=== PATIENT | female | born 1995 ===

== ENCOUNTER 2016-11-20 20:01 | Emergency (ER) | payer OTHER ==
[~2016-11-20] VITALS: Ht 154.9 cm; Wt 71.6 kg
[2016-11-20 20:12] VITALS: TEMP 36.8; Ht 154.9 cm; Wt 71.6 kg
[2016-11-20 21:37] VITALS: BP 124/87; PULSE 68; O2SAT 99
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
== END 2016-11-20 21:38 | disposition home or self-care (01) ==
LOC: C.EDB 20:03 → C.EDD 21:38
DX: M54.2 Cervicalgia (principal); R51 Headache; V43.62XA Car passenger injured in collision with other type car in traffic accident, initial encounter; Y92.488 Other paved roadways as the place of occurrence of the external cause

== ENCOUNTER 2016-12-20 11:20 | Emergency (ER) | payer OTHER ==
[~2016-12-20] VITALS: Ht 154.9 cm; Wt 70.0 kg
[2016-12-20 11:23] VITALS: TEMP 36.8; Ht 154.9 cm; Wt 70.0 kg
[2016-12-20] MEDS ORDERED: BCPILLS PO (12:03)
[2016-12-20 13:01] LABS: BASO % 0.2 %; BASO ABS # 0.01 K/uL (0-0.2); COMPLETE YES; HEMATOCRIT 38.6 % (37-47); IG% 0.2 %; LYMPH % 28.8 %; LYMPH ABS # 1.61 K/uL (1.2-3.4); MEAN CELL VOLUME 92.1 fL (80-100); MEAN CORPUSCULAR HEMOGLOBIN 31.3 pg (25-34); MEAN CORPUSCULAR HGB CONC 33.9 g/dl (32-36); NEUT % 65.8 %; PLATELET COUNT 262 K/uL (130-400); RED BLOOD COUNT 4.19 M/uL (4.2-5.4)
[2016-12-20 13:11] LABS: BUN/CREATININE RATIO 10.3 (10-20); CREATININE 0.63 mg/dl (0.60-1.20); POTASSIUM 3.9 mmol/L (3.5-5.1)
[2016-12-20 13:13] LABS: ALB/GLOB RATIO 0.9 (0.9-2)
[2016-12-20 13:21] LABS: URINE APPEARANCE CLEAR (CLEAR); URINE BILIRUBIN NEG (NEG); URINE COLOR YELLOW; URINE EPITHELIAL CELL AUTO >30 /lpf (0-5); URINE NITRITE NEG (NEG); URINE PH 7.5 (4.5-7.5); UROBILINOGEN NEG (NEG); ZZUR CULT IF INDIC CLEAN CATCH NO
[2016-12-20 13:23] LABS: MANUAL MICROSCOPIC REQUIRED? NO; REVIEW REQ? NO
[2016-12-20] MEDS ORDERED: ONDANSETRON INJ 2 MG/ML 2 ML VIAL IV STA (13:23)
[2016-12-20] MEDS ORDERED: SODIUM CHLORIDE 0.9% 1000ML 1,000 ML IV STA ×2 (13:23)
--- NOTE | 2016-12-20 13:25 | EMERGENCY ROOM VISIT NOTE ---
History Report prepared by Althea: Francine Begum Under the Supervision of: Dr. Demetris Romero D.O. First contact with patient: 13:14 Chief Complaint: ABDOMINAL PAIN Stated Complaint: LEFT OVARY PAIN, LOWER BACK PAIN Nursing Triage Summary: pt to the ED with left lower pelvic pain going to her back that started at 3 am today with nausea History of Present Illness The patient is a 21 year old female who presents to the Emergency Room with complaints of worsening left lower pelvic pain beginning at 3am this morning. She states that the pain feels like it is over her left ovary. Patient states that the pain radiates to her lower back. The patient has tried a heating pad that did not help to alleviate the symptoms. She notes she has been experiencing a white vaginal discharge, headache and nausea also. The patient notes that she also for the past few weeks has been experiencing abdominal pain. She has tried to change her diet and this did not change her symptoms. The patient notes she has a history of ovarian cyst. During the time of the cyst she experienced pelvic pain similar to what she is experiencing now. She notes however that she had an ultrasound done 2 months ago and no cyst was seen at that time. The patient denies vaginal bleeding, blood in urine, or vomiting. Her LNMP was one month ago. The patient is on control. Source of History: patient Onset: 3am this morning Position: other (lower pelvic) Timing: worsening Associated Symptoms: + headache, + nausea, No vomiting Note: Patient is experiencing white vaginal discharge. Review of Systems See HPI for pertinent positives & negatives. A total of 10 systems reviewed and were otherwise negative. Past Medical & Surgical Medical Problems: (1) Ovarian cyst Family History Patient reports no known family medical history. Social History Smoking Status: Never Smoker Smokeless Tobacco Use: No Marital Status: single Housing Status: lives with roommate Occupation Status: [employer] student Current/Historical Medications Scheduled Control Pills ( Control Pills), 1 TAB PO DAILY Scheduled PRN Oxycodone Immediate Rel Tab (Roxicodone Ir), 1-2 TAB PO Q4H PRN for Severe Pain Allergies Coded Allergies: No Known Allergies (Unverified , 12/20/16) Physical Exam Vital Signs Date Time Temp Pulse Resp B/P Pulse Ox O2 Delivery O2 Flow Rate FiO2 12/20/16 17:52 65 16 113/76 98 12/20/16 16:21 54 16 110/64 98 12/20/16 14:29 75 17 104/56 100 Room Air 12/20/16 13:43 57 18 107/69 99 Room Air 12/20/16 11:23 36.8 76 16 116/73 96 Room Air Physical Exam GENERAL: Patient is awake, alert, and in no acute distress. Patient is resting comfortably and showing no signs of anxiety EYES: The conjunctivae are clear. The pupils are round and reactive. EARS, NOSE, MOUTH AND THROAT: The nose is without any evidence of any deformity. Mucous membranes are moist tongue is midline NECK: The neck is nontender and supple. RESPIRATORY: Normal respiratory effort is noted there is no evidence of wheezing rhonchi or rales CARDIOVASCULAR: Regular rate and rhythm noted there no murmurs rubs or gallops normal S1 normal S2 GASTROINTESTINAL: The abdomen is soft. Bowel sounds are present in all quadrants. Abdomen is mildly distended. Bilateral lower tenderness to palpation. No guarding or rigidity. BACK: No midline tenderness or or step-off noted range of motion in flexion extension as well as rotation no signs of muscle spasm noted MUSCULOSKELETAL/EXTREMITIES: There is no evidence of gross deformity full range of motion is noted in the hips and shoulders SKIN: There is no obvious evidence of any rash. There are no petechiae, pallor or cyanosis noted. NEUROLOGIC: Patient is awake alert and oriented x3 strength is symmetric patellar reflexes are 2+ bilaterally Medical Decision & Procedures ER Provider Diagnostic Interpretation: Radiology results as stated below per my review and radiologist interpretation: ADDENDUM Addendum: The uterus measures 7.6 x 3.2 x 4.9 cm. The endometrium measures 3 mm in thickness. Transvaginal imaging was deferred in this patient. The right ovary measured 2.3 x 1.2 x 1.6 cm and the left measured 2.6 x 1.6 x 2 cm. No free fluid was identified. An echogenic shadowing lesion within the left adnexa is noted. This suggests a left ovarian dermoid, measuring approximately 3.5 cm. This could be assessed with CT. Electronically signed by: Roge Cortez M.D. 12/20/2016 4:17 PM Dictated Date/Time: 12/20/2016 4:15 PM ORIGINAL REPORT EXAMINATION: PELVIC ULTRASOUND CLINICAL HISTORY: lweftr lower abd pain PAIN COMPARISON STUDY: None Findings: The appendix is not identified. Study is nondiagnostic in reference to potential appendicitis IMPRESSION: Nonvisualization of the appendix Electronically signed by: Krishan Sexton M.D. 12/20/2016 3:36 PM Dictated Date/Time: 12/20/2016 3:34 PM APPENDIX ULTRASOUND CLINICAL HISTORY: Right lower quadrant abdominal pain COMPARISON STUDY: No previous studies for comparison. FINDINGS: Ultrasonographic evaluation right lower quadrant was performed and circulation representative images are similar for interpretation. The appendix was nonvisualized. There are no abnormal fluid collections. IMPRESSION: Nonvisualization the appendix. This study is therefore nondiagnostic in regards to acute appendicitis Electronically signed by: Brian Dinero M.D. 12/20/2016 3:27 PM Dictated Date/Time: 12/20/2016 3:[address] ABD/PELVIS IV AND ORAL CONT CLINICAL HISTORY: Lower abdominal pain COMPARISON STUDY: Appendiceal ultrasound dated 12/20/2016 TECHNIQUE: Following the IV administration of 92 mL of Optiray-320, CT scan of the abdomen and pelvis was performed from the lung bases to the proximal femurs. Images are reviewed in the axial, sagittal, and coronal planes. IV contrast was administered without complication. CT DOSE: 333.57 mGy.cm FINDINGS: Lower chest: The heart is normal in size and configuration, without pericardial effusion. The lung bases and pleural spaces are clear. Liver: The contrast-enhanced liver is normal in size, contour, and attenuation. There is no intrahepatic biliary ductal dilatation. The hepatic veins and portal veins are patent. Gallbladder: Unremarkable. Spleen: Normal in size and attenuation. Pancreas: Unremarkable. Adrenal glands: Unremarkable. Kidneys: There is symmetric renal cortical enhancement. There is minimal prominence of the right renal pelvis but significant hydronephrosis is not felt to be present. Bowel: There are no transition zones indicate bowel obstruction. The appendix appears normal. There is no acute diverticulitis. Peritoneum: There is no intraperitoneal free air or abdominal ascites. Vasculature: The abdominal aorta is normal in course and caliber. Adenopathy: None. Pelvic viscera: There is a 4.4 cm mass with thin the left cul-de-sac containing fat and calcification. This is consistent with ovarian thyroid/teratoma. A small calcification posterior to the bladder to the right of midline, likely represents a phlebolith. This is likely inferior to the right ureteral insertion. Skeletal structures: No destructive osseous lesions are seen. IMPRESSION: 1. No evidence of bowel obstruction. No evidence of free air 2. Normal appendix 3. No acute inflammatory changes 4. 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 Electronically signed by: Brian Dinero M.D. 12/20/2016 4:22 PM Dictated Date/Time: 12/20/2016 4:16 PM Laboratory Results 12/20/16 12:39 Red Blood Count 4.19, Mean Corpuscular Volume 92.1, Mean Corpuscular Hemoglobin 31.3, Mean Corpuscular Hemoglobin Concent 33.9, Mean Platelet Volume 12.0, Neutrophils (%) (Auto) 65.8, Lymphocytes (%) (Auto) 28.8, Monocytes (%) (Auto) 5.0, Eosinophils (%) (Auto) 0.0, Basophils (%) (Auto) 0.2, Neutrophils # (Auto) 3.69, Lymphocytes # (Auto) 1.61, Monocytes # (Auto) 0.28, Eosinophils # (Auto) 0.00, Basophils # (Auto) 0.01 12/20/16 12:39 Test 12/20/16 12:30 12/20/16 12:39 Urine Color YELLOW Urine Appearance CLEAR (CLEAR) Urine pH 7.5 (4.5-7.5) Urine Specific [place] 1.000 (1.000-1.030) Urine Protein NEG (NEG) Urine Glucose (UA) NEG (NEG) Urine Ketones NEG (NEG) Urine Occult Blood NEG (NEG) Urine Nitrite NEG (NEG) Urine Bilirubin NEG (NEG) Urine Urobilinogen NEG (NEG) Urine Leukocyte Esterase TRACE (NEG) Urine WBC (Auto) 1-5 /hpf (0-5) Urine RBC (Auto) 0-4 /hpf (0-4) Urine Hyaline Casts (Auto) 0 /lpf (0-5) Urine Epithelial Cells (Auto) >30 /lpf (0-5) Urine Bacteria (Auto) NEG (NEG) White Blood Count 5.60 K/uL (4.8-10.8) Red Blood Count 4.19 M/uL (4.2-5.4) Hemoglobin 13.1 g/dL (12.0-16.0) Hematocrit 38.6 % (37-47) Mean Corpuscular Volume 92.1 fL (80-100) Mean Corpuscular Hemoglobin 31.3 pg (25-34) Mean Corpuscular Hemoglobin Concent 33.9 g/dl (32-36) Platelet Count 262 K/uL (130-400) Mean Platelet Volume 12.0 fL (7.4-10.4) Neutrophils (%) (Auto) 65.8 % Lymphocytes (%) (Auto) 28.8 % Monocytes (%) (Auto) 5.0 % Eosinophils (%) (Auto) 0.0 % Basophils (%) (Auto) 0.2 % Neutrophils # (Auto) 3.69 K/uL (1.4-6.5) Lymphocytes # (Auto) 1.61 K/uL (1.2-3.4) Monocytes # (Auto) 0.28 K/uL (0.11-0.59) Eosinophils # (Auto) 0.00 K/uL (0-0.5) Basophils # (Auto) 0.01 K/uL (0-0.2) RDW Standard Deviation 44.5 fL (36.4-46.3) RDW Coefficient of Variation 13.3 % (11.5-14.5) Immature Granulocyte % (Auto) 0.2 % Immature Granulocyte # (Auto) 0.01 K/uL (0.00-0.02) Anion Gap 8.0 mmol/L (3-11) Est Creatinine Clear Calc Drug Dose 127.4 ml/min Estimated GFR () 149.7 Estimated GFR (Non- 129.1 BUN/Creatinine Ratio 10.3 (10-20) Calcium Level 9.0 mg/dl (8.5-10.1) Total Bilirubin 0.3 mg/dl (0.2-1) Aspartate Amino Transf (AST/SGOT) 20 U/L (15-37) Alanine Aminotransferase (ALT/SGPT) 23 U/L (12-78) Alkaline Phosphatase 49 U/L (45-117) Total Protein 7.7 gm/dl (6.4-8.2) Albumin 3.7 gm/dl (3.4-5.0) Globulin 4.0 gm/dl (2.5-4.0) Albumin/Globulin Ratio 0.9 (0.9-2) Lipase 164 U/L (73-393) Human Chorionic Gonadotropin, Qual NEG (NEG) Laboratory results per my review. Medications Administered Medications (Trade) Dose Ordered Sig/Maylin Route Start Time Stop Time Status Last Admin Dose Admin Ondansetron HCl 4 mg 4 mg NOW STAT IV 12/20/16 13:23 12/20/16 13:26 DC 12/20/16 13:44 4 MG Sodium Chloride 1,000 ml @ 999 mls/hr Q1H1M STAT IV 12/20/16 13:23 12/20/16 14:23 DC 12/20/16 13:45 999 MLS/HR Sodium Chloride (Nss 1000ml) 1,000 ml @ 250 mls/hr Q4H STAT IV 12/20/16 13:23 12/20/16 17:22 DC 12/20/16 13:23 250 MLS/HR ED Course 1320: The patient was evaluated in room C2. A complete history and physical examination were performed. 1323: Sodium Chloride 1,000 ml @ 250 mls/hr IV, Sodium Chloride 1,000 ml @ 999 mls/hr IV, Zofran Inj 4 mg IV. 1657: I spoke with Dr. Nazanin ROBLES about the patient's results. The patient will follow up outpatient in the office. 1719: I reevaluated the patient and discussed plan for outpatient treatment follow up. 1735: Upon reevaluation, the patient is hemodynamically stable. I discussed the results and treatment plan with her. She verbalized agreement of the treatment plan. She was discharged home. Medical Decision Differential diagnosis: Etiologies such as appendicitis, diverticulitis, PUD, biliary pathology, UTI, pancreatitis, obstruction, mesenteric ischemia, aortic pathology, infections, inflammatory bowel disease, renal colic, as well as others were entertained. Nursing notes reviewed. The patient is a 21-year-old female who presented to the emergency department for an evaluation of left pelvic pain. The patient did not have a physical exam consistent with a surgical abdomen. She states that she's had a history of ovarian cysts in the past. Ultrasound did not reveal definite appendicitis. There was an adnexal abnormality noted on ultrasound of the pelvis and a CAT scan was recommended. The patient was found have what appears to be a dermoid cyst in the left adnexal pain. I discussed patient's laboratory and radiographic studies with her. She was treated with IV fluids and IV antiemetics. I discussed his case with the on-call [facility] ACCOUNT SERVICES ASSOCIATE physician. They've recommended outpatient follow-up for further evaluation of this abnormality noted on CAT scan. The patient was encouraged to rest and avoid any strenuous activity. She was encouraged to continue all medications as prescribed and follow-up with ACCOUNT SERVICES ASSOCIATE as soon as possible. She was also encouraged to return to the emergency department immediately if symptoms change worsen or the need arises. Consults Time Called: 1654 Consulting Physician: Dr. Nazanin ROBLES Returned Call: [phone] Nazanin ROBLES about the patient's results. The patient will follow up outpatient in the office. Impression Primary Impression: Pelvic pain Additional Impression: Dermoid cyst Scribe Attestation The scribe's documentation has been prepared under my direction and personally reviewed by me in its entirety. I confirm that the note above accurately reflects all work, treatment, procedures, and medical decision making performed by me. Departure Information Dispostion Home / Self-Care Prescriptions Oxycodone Immediate Rel Tab (ROXICODONE IR) 5 Mg Tab 1-2 TAB PO Q4H Y for Severe Pain, #24 TAB Prov: Demetris Romero, DO 12/20/16 Referrals No Doctor, Assigned (PCP) Forms HOME CARE DOCUMENTATION FORM, IMPORTANT VISIT INFORMATION, School Instructions, Work Instructions Patient Instructions ED Cyst Ovarian, My [facility] Additional Instructions Continue using Motrin and Tylenol as directed for pain. Rest and avoid any strenuous activity. Call the ACCOUNT SERVICES ASSOCIATE physician to schedule a follow-up appointment. According to the radiographic studies this appears to be a dermoid ovarian cyst. Other causes could be possible. I would recommend a follow-up appointment with the ACCOUNT SERVICES ASSOCIATE physician as it is possible to evaluate what treatment options are available. Return to the emergency apartment immediately symptoms change worsen or the need arises. Problem Qualifiers
[2016-12-20 13:45] LABS: PREG INTERNAL NEGATIVE QC NEG CLEAR BACKGROUND; PREG INTERNAL POSITIVE QC POS CONTROL LINE
--- NOTE | 2016-12-20 15:28 | DIAGNOSTIC IMAGING REPORT ---
APPENDIX ULTRASOUND CLINICAL HISTORY: Right lower quadrant abdominal pain COMPARISON STUDY: No previous studies for comparison. FINDINGS: Ultrasonographic evaluation right lower quadrant was performed and technical sales representative images are similar for interpretation. The appendix was nonvisualized. There are no abnormal fluid collections. IMPRESSION: Nonvisualization the appendix. This study is therefore nondiagnostic in regards to acute appendicitis Electronically signed by: Brian Dinero M.D. 12/20/2016 3:27 PM Dictated Date/Time: 12/20/2016 3:27 PM
--- NOTE | 2016-12-20 15:37 | DIAGNOSTIC IMAGING REPORT ---
ADDENDUM Addendum: The uterus measures 7.6 x 3.2 x 4.9 cm. The endometrium measures 3 mm in thickness. Transvaginal imaging was deferred in this patient. The right ovary measured 2.3 x 1.2 x 1.6 cm and the left measured 2.6 x 1.6 x 2 cm. No free fluid was identified. An echogenic shadowing lesion within the left adnexa is noted. This suggests a left ovarian dermoid, measuring approximately 3.5 cm. This could be assessed with CT. Electronically signed by: Roge Cortez M.D. 12/20/2016 4:17 PM Dictated Date/Time: 12/20/2016 4:15 PM ORIGINAL REPORT EXAMINATION: PELVIC ULTRASOUND CLINICAL HISTORY: lweftr lower abd pain PAIN COMPARISON STUDY: None Findings: The appendix is not identified. Study is nondiagnostic in reference to potential appendicitis IMPRESSION: Nonvisualization of the appendix Electronically signed by: Krishan Sexton M.D. 12/20/2016 3:36 PM Dictated Date/Time: 12/20/2016 3:34 PM
[2016-12-20] MEDS ORDERED: OPTIRAY 320 IV PRN (16:15)
--- NOTE | 2016-12-20 16:24 | DIAGNOSTIC IMAGING REPORT ---
CT ABD/PELVIS IV AND ORAL CONT CLINICAL HISTORY: Lower abdominal pain COMPARISON STUDY: Appendiceal ultrasound dated 12/20/2016 TECHNIQUE: Following the IV administration of 92 mL of Optiray-320, CT scan of the abdomen and pelvis was performed from the lung bases to the proximal femurs. Images are reviewed in the axial, sagittal, and coronal planes. IV contrast was administered without complication. CT DOSE: 333.57 mGy.cm FINDINGS: Lower chest: The heart is normal in size and configuration, without pericardial effusion. The lung bases and pleural spaces are clear. Liver: The contrast-enhanced liver is normal in size, contour, and attenuation. There is no intrahepatic biliary ductal dilatation. The hepatic veins and portal veins are patent. Gallbladder: Unremarkable. Spleen: Normal in size and attenuation. Pancreas: Unremarkable. Adrenal glands: Unremarkable. Kidneys: There is symmetric renal cortical enhancement. There is minimal prominence of the right renal pelvis but significant hydronephrosis is not felt to be present. Bowel: There are no transition zones indicate bowel obstruction. The appendix appears normal. There is no acute diverticulitis. Peritoneum: There is no intraperitoneal free air or abdominal ascites. Vasculature: The abdominal aorta is normal in course and caliber. Adenopathy: None. Pelvic viscera: There is a 4.4 cm mass with thin the left cul-de-sac containing fat and calcification. This is consistent with ovarian thyroid/teratoma. A small calcification posterior to the bladder to the right of midline, likely represents a phlebolith. This is likely inferior to the right ureteral insertion. Skeletal structures: No destructive osseous lesions are seen. IMPRESSION: 1. No evidence of bowel obstruction. No evidence of free air 2. Normal appendix 3. No acute inflammatory changes 4. 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 Electronically signed by: Brian Dinero M.D. 12/20/2016 4:22 PM Dictated Date/Time: 12/20/2016 4:16 PM
[2016-12-20] MEDS ORDERED: OXYC1TAB3 PO (17:29)
[2016-12-20 17:52] VITALS: BP 113/76; PULSE 65; O2SAT 98
== END 2016-12-20 17:53 | disposition home or self-care (01) ==
LOC: C.EDB 11:22 → C.EDC 17:53
DX: R10.2 Pelvic and perineal pain (principal); D27.1 Benign neoplasm of left ovary; Z79.3 Long term (current) use of hormonal contraceptives

== ENCOUNTER 2017-09-05 00:44 | Emergency (ER) | payer OTHER ==
[~2017-09-05] VITALS: Ht 165.1 cm; Wt 71.3 kg
[~2017-09-05 00:44] MED LIST: BCPILLS PO
[2017-09-05 00:48] VITALS: TEMP 37; Ht 165.1 cm; Wt 71.3 kg
[2017-09-05 01:00] VITALS: O2SAT 95
[2017-09-05 01:22] LABS: BUN/CREATININE RATIO 17.8 (10-20); CALCIUM 8.6 mg/dl (8.5-10.1); CREATININE 0.62 mg/dl (0.60-1.20); POTASSIUM 2.9 mmol/L (3.5-5.1)
[2017-09-05] MEDS ORDERED: POTASSIUM CHLORIDE 10 MEQ TABCR PO STA (05:02)
--- NOTE | 2017-09-05 07:59 | DIAGNOSTIC IMAGING REPORT ---
CT SCAN OF THE BRAIN WITHOUT IV CONTRAST CLINICAL HISTORY: Intoxication. Head injury. COMPARISON STUDY: No priors. TECHNIQUE: Unenhanced axial CT scan of the brain is performed from the vertex to the skull base. A dose lowering technique was utilized adhering to the principles of ALARA. The patient was scanned twice due to motion artifact. CT DOSE: 1228.53 mGy.cm FINDINGS: Brain parenchyma: The brain parenchyma is normal in appearance. There is no hemorrhage, mass effect, or evidence of acute territorial ischemia by CT criteria. Reyes-white matter is preserved. No extra-axial fluid collection is seen. Ventricles, sulci, cisterns: Normal in configuration. Intracranial vasculature: The visualized intracranial vasculature at the skull base is normal in appearance. Calvarium: There is no depressed calvarial fracture. Sinuses and mastoids: The visualized paranasal sinuses are clear. The mastoid air cells are well pneumatized. Orbits: The bony orbits are grossly intact. IMPRESSION: No acute intracranial abnormality noting a motion degraded examination. Electronically signed by: Roberto Dean M.D. 09/05/2017 7:57 AM Dictated Date/Time: 09/05/2017 7:49 AM
[2017-09-05] MEDS ORDERED: POTASSIUM CHLORIDE 10 MEQ TABCR ONE (11:00)
[2017-09-05 11:13] VITALS: BP 113/86; PULSE 102; O2SAT 97
--- NOTE | 2017-09-05 11:25 | EMERGENCY ROOM VISIT NOTE ---
ED Visit Note First contact with patient: 08:48 This patient's care was transferred to az by Heidi Albright PA-C for change of shift. This is a 22-year-old male who presented to the emergency department with a medical alcohol level of 338 at 12:57 AM. Patient was placed on monitor and in prone position. Labs were reviewed to show a hypokalemia, and was administered oral potassium. Labs were also reviewed: Results Past 24 Hours Test 09/05/17 00:57 Range/Units Sodium Level 143 136-145 mmol/L Potassium Level 2.9 3.5-5.1 mmol/L Chloride Level 111 98-107 mmol/L Carbon Dioxide Level 21 21-32 mmol/L Anion Gap 11.0 3-11 mmol/L Blood Urea Nitrogen 11 7-18 mg/dl Creatinine 0.62 0.60-1.20 mg/dl Est Creatinine Clear Calc Drug Dose 142.1 ml/min Estimated GFR () 149.4 Estimated GFR (Non- 128.9 BUN/Creatinine Ratio 17.8 10-20 Random Glucose 101 70-99 mg/dl Calcium Level 8.6 8.5-10.1 mg/dl Ethyl Alcohol mg/dL 338.0 0-3 mg/dl After transfer of care, the patient was reexamined personally by az. The patient is noncommunicative with az or her nurse. For this reason, I did elect to perform a head CT which was also normal: CT SCAN OF THE BRAIN WITHOUT IV CONTRAST CLINICAL HISTORY: Intoxication. Head injury. COMPARISON STUDY: No priors. TECHNIQUE: Unenhanced axial CT scan of the brain is performed from the vertex to the skull base. A dose lowering technique was utilized adhering to the principles of ALARA. The patient was scanned twice due to motion artifact. CT DOSE: 1228.53 mGy.cm FINDINGS: Brain parenchyma: The brain parenchyma is normal in appearance. There is no hemorrhage, mass effect, or evidence of acute territorial ischemia by CT criteria. Reyes-white matter is preserved. No extra-axial fluid collection is seen. Ventricles, sulci, cisterns: Normal in configuration. Intracranial vasculature: The visualized intracranial vasculature at the skull base is normal in appearance. Calvarium: There is no depressed calvarial fracture. Sinuses and mastoids: The visualized paranasal sinuses are clear. The mastoid air cells are well pneumatized. Orbits: The bony orbits are grossly intact. IMPRESSION: No acute intracranial abnormality noting a motion degraded examination. The patient had no adverse events while in the emergency department. The patient was aroused and communicative at 10:30 AM. The patient does admit to a significant amount of alcohol consumption last night. She denies any known injury. Secondary assessment was performed to show no other acute injuries or complaints of other injuries from this incident. The patient was given discharge information for the [facility]. The patient was instructed to rest and remain well hydrated today, avoiding any further alcohol. The patient was also ordered potassium chloride to be taken at noontime today with a meal for treatment of her acute hypokalemia. The patient was discharged with a sober friend, and voiced understanding of all discharge instructions. ASSESSMENT: 1. Ethyl alcohol overdose 2. Hypokalemia
== END 2017-09-05 11:14 | disposition home or self-care (01) ==
LOC: C.EDB 00:48
DX: F10.929 Alcohol use, unspecified with intoxication, unspecified (principal); Y90.8 Blood alcohol level of 240 mg/100 ml or more; E87.6 Hypokalemia

== ENCOUNTER 2017-10-02 04:47 | Emergency (ER) | payer OTHER ==
[~2017-10-02] VITALS: Ht 154.9 cm; Wt 75.0 kg
[2017-10-02 04:50] VITALS: TEMP 36.6; Ht 154.9 cm; Wt 75.0 kg
[2017-10-02] MEDS ORDERED: KETOROLAC TROMETHAMINE 30 MG/ML VIAL IV STA (05:20)
--- NOTE | 2017-10-02 05:31 | EMERGENCY ROOM VISIT NOTE ---
History Report prepared by Althea: Lisa Patel Under the Supervision of: Dr. Jackie Calhoun D.O. First contact with patient: 05:00 Chief Complaint: HEADACHE Stated Complaint: HEADACHE,CHEST PRESSURE History of Present Illness The patient is a 22 year old female who presents to the Emergency Room with complaints of persistent headache for the past 48 hours. She describes the pain as throbbing. She also had chest pressure which made it hard to breathe. The patient also woke up today with green crust on her eyes. Her eyes appeared red. She has been spitting up phlegm and blowing her nose. She has pain with swallowing her saliva. Her ears are popping. She notes she had been getting sick intermittently for the past 3 months. She has been on amoxicillin and Zithromax. She was last sick 2 weeks ago. She was started on a Zithromax which she stopped taking after she started feeling better. She tried taking the 1 leftover pill yesterday. She denies any fever, leg cramping or swelling. She denies any medical problems. Her last menstrual period was last week. She did not have a flu shot this year. She has been drinking plenty of fluids. She was able to go to the gym yesterday, but she did not feel well. Source of History: patient Onset: 48 hours Position: head Quality: other (throbbing) Timing: other (persistent) Associated Symptoms: + sorethroat, + chest pain, + SOB, No fevers Note: Pt reports crusty red eyes, ear popping, rhinorrhea. Pt denies leg cramping/ swelling. Review of Systems See HPI for pertinent positives & negatives. A total of 10 systems reviewed and were otherwise negative. Past Medical & Surgical Medical Problems: (1) Ovarian cyst Family History Patient reports no known family medical history. Social History Smoking Status: Never Smoker Marital Status: single Housing Status: lives with roommate Occupation Status: [employer] student Current/Historical Medications No Active Prescriptions or Reported Meds Allergies Coded Allergies: No Known Allergies (Unverified , 10/02/17) Physical Exam Vital Signs Date Time Temp Pulse Resp B/P (MAP) Pulse Ox O2 Delivery O2 Flow Rate FiO2 10/02/17 06:27 78 18 128/78 100 Room Air 10/02/17 04:50 36.6 82 18 121/81 99 Room Air Physical Exam HEENT: Head - normocephalic and atraumatic Pupils are equal, round, and reactive to light. Extraocular eye muscles are intact, and sclera are anicteric. There is mild scleral injection. There is no sign of lid edema or conjunctivitis. Ears - normal TMs. Nose - moist nasal mucosa without discharge. Mouth - moist buccal mucosa. Oropharynx is nonerythematous and there is no tonsillar exudate or edema noted. Neck: Supple; no JVD, nuchal rigidity, cervical lymphadenopathy. Heart: Regular rate and rhythm. There is a normal S1 and S2 with no murmurs, clicks, or gallops appreciated. Lungs: Clear to auscultation bilaterally with no wheezes, rales, or rhonchi. Abdomen: Soft, completely nontender, nondistended, with good bowel sounds. There are no palpable pulsatile masses or hepatosplenomegaly. There is no guarding, rigidity, or rebound noted. Extremities: No evidence of cyanosis, clubbing, or edema. There are easily palpable peripheral pulses. Skin: warm and dry with good turgor and no rashes. Medical Decision & Procedures ER Provider Diagnostic Interpretation: X-ray results as stated below per interpretation by me: Chest X-ray, 2-view: No pulmonary infiltrates. No consolidation. Laboratory Results 10/02/17 05:31 Red Blood Count 4.23, Mean Corpuscular Volume 94.8, Mean Corpuscular Hemoglobin 31.4, Mean Corpuscular Hemoglobin Concent 33.2, Mean Platelet Volume 11.6, Neutrophils (%) (Auto) 60.5, Lymphocytes (%) (Auto) 30.9, Monocytes (%) (Auto) 7.8, Eosinophils (%) (Auto) 0.5, Basophils (%) (Auto) 0.1, Neutrophils # (Auto) 4.93, Lymphocytes # (Auto) 2.52, Monocytes # (Auto) 0.64, Eosinophils # (Auto) 0.04, Basophils # (Auto) 0.01 10/02/17 05:31 Test 10/02/17 05:31 White Blood Count 8.16 K/uL (4.8-10.8) Red Blood Count 4.23 M/uL (4.2-5.4) Hemoglobin 13.3 g/dL (12.0-16.0) Hematocrit 40.1 % (37-47) Mean Corpuscular Volume 94.8 fL (80-100) Mean Corpuscular Hemoglobin 31.4 pg (25-34) Mean Corpuscular Hemoglobin Concent 33.2 g/dl (32-36) Platelet Count 290 K/uL (130-400) Mean Platelet Volume 11.6 fL (7.4-10.4) Neutrophils (%) (Auto) 60.5 % Lymphocytes (%) (Auto) 30.9 % Monocytes (%) (Auto) 7.8 % Eosinophils (%) (Auto) 0.5 % Basophils (%) (Auto) 0.1 % Neutrophils # (Auto) 4.93 K/uL (1.4-6.5) Lymphocytes # (Auto) 2.52 K/uL (1.2-3.4) Monocytes # (Auto) 0.64 K/uL (0.11-0.59) Eosinophils # (Auto) 0.04 K/uL (0-0.5) Basophils # (Auto) 0.01 K/uL (0-0.2) RDW Standard Deviation 44.7 fL (36.4-46.3) RDW Coefficient of Variation 12.9 % (11.5-14.5) Immature Granulocyte % (Auto) 0.2 % Immature Granulocyte # (Auto) 0.02 K/uL (0.00-0.02) Anion Gap 5.0 mmol/L (3-11) Est Creatinine Clear Calc Drug Dose 137.3 ml/min Estimated GFR () > 150.0 Estimated GFR (Non- 130.3 BUN/Creatinine Ratio 17.2 (10-20) Calcium Level 8.2 mg/dl (8.5-10.1) Laboratory results per my review. Medications Administered Medications (Trade) Dose Ordered Sig/Maylin Route Start Time Stop Time Status Last Admin Dose Admin Ketorolac Tromethamine (Toradol Inj) 30 mg NOW STAT IV 10/02/17 05:20 10/02/17 05:23 DC 10/02/17 05:48 30 MG Procedure Medications: Toradol Inj 30 mg IV. ED Course 0511: The patient was evaluated in room B11B. A complete history and physical examination were performed. Nursing notes and previous electronic medical records were reviewed. IV lock was established and labs were drawn as above. 0520: Toradol Inj 30 mg IV. The patient had a chest x-ray which was unremarkable. 0610: Upon reevaluation, the patient feels much better. Her headache has resolved. The scleral injection has resolved. I discussed findings and results with her. She verbalized agreement of the treatment plan. She was discharged home. Medical Decision The patient is a 22 year old female who presents to the ED with headache. Differential diagnosis includes URI, bronchitis, pneumonia, sinusitis, meningitis. Labs: white count 8.1, stable H&H, no atypical lymphocytes, normal renal function and glucose. The patient describes a history of multiple it illnesses over the fall. She has been on antibiotics a couple of times. She did not finish her course of antibiotics during her last illness. It seems that the patient is suffering from an acute URI which is most likely viral in origin. She has no fever or leukocytosis to suggest significant bacterial infection. She has no nuchal rigidity or meningismus to suggest meningitis. Receiving IV Toradol, the patient is feeling better at this time. Medication Reconcilliation Current Medication List: was personally reviewed by me Blood Pressure Screening Patient's blood pressure: Normal blood pressure Blood pressure disposition: Did not require urgent referral Impression Primary Impression: URI, acute Additional Impression: Headache Scribe Attestation The scribe's documentation has been prepared under my direction and personally reviewed by me in its entirety. I confirm that the note above accurately reflects all work, treatment, procedures, and medical decision making performed by me. Departure Information Dispostion Home / Self-Care Prescriptions No Active Prescriptions or Reported Meds Referrals No Doctor, Assigned (PCP) Forms HOME CARE DOCUMENTATION FORM, IMPORTANT VISIT INFORMATION Patient Instructions ED URI Viral, Headaches Sinus, My [facility] Additional Instructions Rest. take a well-balanced diet and plenty of clear liquids Use sudafed for congestion. You may also use benadryl Follow up with PCP if symptoms persist. Return to the ER if symptoms worsen. Problem Qualifiers Additional Impression: Headache Headache type: unspecified Headache chronicity pattern: acute headache Intractability: not intractable Qualified Codes: R51 - Headache
[2017-10-02 05:42] LABS: BASO % 0.1 %; BASO ABS # 0.01 K/uL (0-0.2); COMPLETE YES; EOS % 0.5 %; HEMATOCRIT 40.1 % (37-47); IG% 0.2 %; LYMPH % 30.9 %; LYMPH ABS # 2.52 K/uL (1.2-3.4); MEAN CELL VOLUME 94.8 fL (80-100); MEAN CORPUSCULAR HEMOGLOBIN 31.4 pg (25-34); MEAN CORPUSCULAR HGB CONC 33.2 g/dl (32-36); MEAN PLATELET VOLUME 11.6 fL (7.4-10.4); MONO % 7.8 %; NEUT % 60.5 %; PLATELET COUNT 290 K/uL (130-400); RED BLOOD COUNT 4.23 M/uL (4.2-5.4); WHITE BLOOD COUNT 8.16 K/uL (4.8-10.8)
[2017-10-02 06:00] LABS: BLOOD UREA NITROGEN 10 mg/dl (7-18); BUN/CREATININE RATIO 17.2 (10-20); CALCIUM 8.2 mg/dl (8.5-10.1); CARBON DIOXIDE 28 mmol/L (21-32); CHLORIDE 103 mmol/L (98-107); GLUCOSE 92 mg/dl (70-99); POTASSIUM 3.7 mmol/L (3.5-5.1); SODIUM 136 mmol/L (136-145)
[2017-10-02 06:27] VITALS: BP 128/78; PULSE 78; O2SAT 100
--- NOTE | 2017-10-02 06:38 | DIAGNOSTIC IMAGING REPORT ---
CHEST 2 VIEWS ROUTINE CLINICAL HISTORY: cough HEADACHE COMPARISON STUDY: No previous studies for comparison. FINDINGS: The cardiac and mediastinal contours are normal. There is no evidence of focal pulmonary consolidation. There is no evidence of failure. No pleural effusions are visualized.[ IMPRESSION: No active disease in the chest. Electronically signed by: Brian Dinero M.D. 10/02/2017 6:37 AM Dictated Date/Time: 10/02/2017 6:37 AM
== END 2017-10-02 06:27 | disposition home or self-care (01) ==
LOC: C.EDB 04:48
DX: J06.9 Acute upper respiratory infection, unspecified (principal); R51 Headache